=== PATIENT | male | born 2000 | race Caucasian/White ===

== ENCOUNTER 2023-05-10 21:12 | Emergency (ER) | payer OTHER, BC ==
[~2023-05-10] VITALS: Ht 180.3 cm; Wt 70.3 kg
[2023-05-10 21:30] VITALS: BP 140/83
[2023-05-10] MEDS ORDERED: CEPH500 PO (22:41)
== END 2023-05-10 22:49 | disposition home or self-care (01) ==
LOC: ER 21:12
DX: L03.115 Cellulitis of right lower limb (principal)
CPT/HCPCS: 99283; A9270